=== PATIENT | male | born 1970 | race Caucasian/White ===

== ENCOUNTER → 2020-04-15 | Outpatient (CLI) | payer BC | END | disposition home or self-care (01) | LOC: LABWHC1 12:56 | PROVIDERS: ATTEND Physician Assistant | DX: R68.83 Chills (without fever) (principal) | CPT/HCPCS: 87502; U0003; C9803 ==

== ENCOUNTER 2022-05-05 16:55 | Emergency (ER) | payer BC ==
[2022-05-05 17:01] VITALS: RESP 18; TEMP 97.5
--- NOTE | 2022-05-05 17:20 | ED ---
Chest Pain HPI - General Chief Complaint: Chest Pain Stated Complaint: chest pain Time Seen by Provider: 05/05/22 17:03 Source: patient, RN notes reviewed Mode of arrival: ambulatory Limitations: no limitations - History of Present Illness Initial Comments: This is a 51-year-old male who presents to the emergency department for chest pain. States that he has had left-sided chest pain for the last 5 days. He describes the pain as a tightness with radiation into the back and left shoulder. He has minor associated shortness of breath, but is more so concerned about the tightness. The pain is worse with exertion. Denies any personal history of heart problems and he has never had chest pain before. He does have hypertension and hyperlipidemia. His father had cardiac problems, however he was in his 60s when this started. He was evaluated at his primary care provider's office, and because the pain was not reproducible, he was instructed to come to the emergency department for further evaluation. Denies any fevers, chills, sore throat, cough, palpitations, abdominal pain, nausea, vomiting, diarrhea, back pain, or headaches. MD Complaint: chest pain Onset/Timin -: days(s) Pain Location: left chest - Related Data Home Medications Medication Instructions Recorded Confirmed lisinopriL [Zestril] 10 mg PO DAILY 01/19/15 03/19/15 Allergies Allergy/AdvReac Type Severity Reaction Status Date / Time No Known Allergies Allergy Verified 03/17/15 08:44 Review of Systems ROS Statement: Those systems with pertinent positive or pertinent negative responses have been documented in the HPI. ROS Other: All systems not noted in ROS Statement are negative. Past Medical History Past Medical History: Hypertension, Prostate Disorder Additional Past Medical History / Comment(s): DIVERTICULOSIS 01/19/15: BPH, shingelles April 2014. History of Any Multi-Drug Resistant Organisms: None Reported Past Surgical History: Ear Surgery, Orthopedic Surgery, Prostate Surgery Additional Past Surgical History / Comment(s): Prostate biopsies-benign, R knee arthroscopy, vasectomy, L arm and L side of head skin grafting post accident. Past Anesthesia/Blood Transfusion Reactions: No Reported Reaction Additional Past Anesthesia/Blood Transfusion Reaction / Comment(s): Pt has never recieved blood. Past Psychological History: No Psychological Hx Reported Smoking Status: Never smoker Past Alcohol Use History: Occasional Past Drug Use History: None Reported - Past Family History Father Family Medical History: Cancer, Coronary Artery Disease (CAD), Hypertension Additional Family Medical History / Comment(s): Father is living. He has had melanoma, coronary stent General Exam Limitations: no limitations General appearance: alert, in no apparent distress Head exam: Present: atraumatic, normocephalic, normal inspection Respiratory exam: Present: normal lung sounds bilaterally. Absent: respiratory distress, wheezes, rales, rhonchi, stridor, chest wall tenderness Cardiovascular Exam: Present: regular rate, normal rhythm, normal heart sounds. Absent: systolic murmur, diastolic murmur, rubs, gallop, clicks Neurological exam: Present: alert, oriented X3, CN II-XII intact Psychiatric exam: Present: normal affect, normal mood Skin exam: Present: warm, dry, intact, normal color. Absent: rash Course Vital Signs 05/05/22 05/05/22 16:59 19:43 Temperature 97.5 F L Pulse Rate 68 59 L Respiratory 18 18 Rate Blood Pressure 144/89 134/82 O2 Sat by Pulse 98 97 Oximetry Chest Pain MDM - MDM This is a 51-year-old male who presents to the emergency department with chest pain. Was pt. sent in by a medical professional or institution? @ -His PCP Did you speak to anyone other than the patient for history? @ -His Did you review nursing and triage notes? @ -Yes, and I agree, it is accurate with regards to the patient's symptoms. Were old charts reviewed? @ -No Differential Diagnosis? @ -Differential Chest Pain: Stable Angina, Unstable Angina, STEMI, NSTEMI Aortic Dissection, Pneumothorax, Musculoskeletal, Esophageal Spasm GERD, Cholecystitis, Pancreatitis, Zoster, this is not meant to be an all-inclusive list. EKG interpreted by me (3pts min.)? @ -Sinus rhythm. Ventricular rate 64 beats per minute, TN interval 182 ms, QRS duration 102 ms, QTC 368 ms. X-rays interpreted by me (1pt min.)? @ -Chest x-ray obtained, my interpretation identifies no localized consolidations or infiltrates. What testing was considered but not performed? (CT, X-rays, U/S, labs)? Why? @ -None What meds were considered but not given? Why? @ -None Did you discuss the management of the patient with other professionals? @ -No Did you reconcile home meds? @ -No Was smoking cessation discussed for >3mins.? @ -No Was critical care preformed (if so, how long)? @ -No Were there social determinants of health that impacted care today? How? (Homelessness, low income, unemployed, alcoholism, drug addiction, transportation, low edu. Level, literacy, decrease access to med. care, intermediate, rehab)? @ -No Was there de-escalation of care discussed even if they declined? (Discuss DNR or withdrawal of care, Hospice)? @ -No What co-morbidities impacted this encounter? (DM, HTN, Smoking, COPD, CAD, Cancer, CVA, Hep., AIDS, mental health diagnosis, sleep apnea, morbid obesity)? @ -HTN, HLD Was patient admitted / discharged? @ -Discharged. Lab work obtained and found to be nonactionable including a negative troponin and d-dimer. Chest x-ray obtained revealing no acute findings. At the time of initial examination, the patient did not have any significant active chest pain. Discussed that with the lack of pain, we are not going to try nitroglycerin. Advised the patient that with his comorbidities of hypertension and hyperlipidemia as well as the description of his pain, I do strongly recommend admission for further evaluation by cardiology and serial troponins. Patient expresses understanding but wishes to decline admission at this time. States that he will follow up with cardiology on an outpatient basis. I then suggested serial troponins in the emergency department, however the patient again declines. He does express understanding when discussing that one troponin and otherwise negative lab work does not rule out an acute cardiac process and if he were to go home he could still experience an DE which can ultimately lead to . He was given very strict return parameters, in that if he develops increasing chest pain or shortness of breath, he should return immediately. Information for cardiology follow-up was provided, he is instructed to contact them Sunday morning for a follow-up appointment. Undiagnosed new problem with uncertain prognosis? @ -Chest pain Drug Therapy requiring intensive monitoring for toxicity (Heparin, Nitro, Insulin, Cardizem)? @ -None Were any procedures done? @ -None Diagnosis/symptom? @ -Chest pain Acute, or Chronic, or Acute on Chronic? @ -Acute Uncomplicated (without systemic symptoms) or Complicated (systemic symptoms)? @ -Uncomplicated Side effects of treatment? @ -None Exacerbation, Progression, or Severe Exacerbation] @ -Not applicable Poses a threat to life or bodily function? @ -Yes, depending on the cause of the chest pain. Return precautions reviewed in depth, the patient is instructed to return to the emergency department with any new, worsening, or concerning symptoms. Patient v erbalized understanding. This case was discussed in detail with the attending ED physician, Dr. Ruelas. Presentation, findings, and treatment plan discussed in detail as well. Disposition Clinical Impression: Chest pain Disposition: HOME SELF-CARE Instructions (If sedation given, give patient instructions): Chest Pain (ED) Additional Instructions: Return to the emergency department with any new, worsening, or concerning symptoms. Follow up with your primary care provider in 1-2 days and contact the pharmacy billing adjudicator on Sunday for a follow-up appointment to reevaluate symptoms and discuss any additional testing. Is patient prescribed a controlled substance at d/c from ED?: No Referrals: Brandt Muñoz DO [Primary Care Provider] - 1-2 days Cesar Mckenzie MD [STAFF PHYSICIAN] - 1-2 days
[2022-05-05 17:34] LABS: Appearance,Urine Clear (Clear); Bilirubin,Urine Negative (Negative); Blood,Urine Negative (Negative); Color,Urine Light Yellow; Glucose,Urine (UA) Negative (Negative); Ketones,Urine Negative (Negative); Leukocyte Esterase,Urine Negative (Negative); Nitrite,Urine Negative (Negative); Protein,Urine Negative (Negative); Specific Gravity,Urine 1.023 (1.001-1.035); Urobilinogen,Urine <2.0 mg/dL (<2.0)
--- NOTE | 2022-05-05 17:36 | XR ---
EXAMINATION TYPE: XR chest 2V DATE OF EXAM: 05/05/2022 5:32 PM COMPARISON: None TECHNIQUE: XR chest 2V Frontal and lateral views of the chest. CLINICAL INDICATION:Male, 51 years old with history of Chest Pain; FINDINGS: Lungs/Pleura: There is no evidence of pleural effusion, focal consolidation, or pneumothorax. Pulmonary vascularity: Unremarkable. Heart/mediastinum: Cardiomediastinal silhouette is unremarkable. Musculoskeletal: No acute osseous pathology. IMPRESSION: No acute cardiopulmonary disease/process.
[2022-05-05 17:46] LABS: ALT 57 U/L (4-49); AST 34 U/L (17-59); African American GFR (CKD) >90 (>60 ml/min/1.73 sqM); Albumin 4.6 g/dL (3.5-5.0); Alkaline Phosphatase 75 U/L (38-126); Anion Gap 7 mmol/L; Blood Urea Nitrogen 23 mg/dL (9-20); Calcium 9.2 mg/dL (8.4-10.2); Carbon Dioxide 24 mmol/L (22-30); Chloride 106 mmol/L (98-107); Glucose 91 mg/dL (74-99); INR 0.9 (<1.2); Magnesium 2.1 mg/dL (1.6-2.3); Non-African American GFR(CKD) >90 (>60 ml/min/1.73 sqM); Partial Thromboplastin Time 24.5 sec (22.0-30.0); Potassium 4.1 mmol/L (3.5-5.1); Prothrombin Time 9.9 sec (9.0-12.0); Sodium 137 mmol/L (137-145); Total Protein 7.7 g/dL (6.3-8.2)
[2022-05-05 18:01] LABS: Basophils # (A) 0.1 k/uL (0-0.2); Basophils % (A) 1 %; Eosinophils # (A) 0.3 k/uL (0-0.7); Eosinophils % (A) 5 %; HCT 41.9 % (39.0-53.0); HGB 14.8 gm/dL (13.0-17.5); Lymphocytes # (A) 1.6 k/uL (1.0-4.8); Lymphocytes % (A) 25 %; MCHC 35.2 g/dL (31.0-37.0); MCV 87.9 fL (80.0-100.0); Mean Platelet Volume 7.5; Monocytes # (A) 0.5 k/uL (0-1.0); Monocytes % (A) 7 %; Neutrophils # (A) 3.9 k/uL (1.3-7.7); Neutrophils % (A) 59 %; Platelet Count 231 k/uL (150-450); RBC 4.76 m/uL (4.30-5.90); RDW 12.8 % (11.5-15.5); WBC 6.7 k/uL (3.8-10.6)
[2022-05-05 19:44] VITALS: BP 134/82; PULSE 59
== END 2022-05-05 19:44 | disposition home or self-care (01) ==
LOC: EC 16:55
DX: R07.89 Other chest pain (principal); I10 Essential (primary) hypertension; E78.5 Hyperlipidemia, unspecified
CPT/HCPCS: 36415; 71046; 80053; 81003; 83735; 84484; 85025; 85379; 85610; 85730; 93005; 99285

== ENCOUNTER → 2022-06-26 | Outpatient (CLI) | payer BC ==
--- NOTE | 2022-06-26 12:37 | CA ---
Stress Echo Report Pietro Butt Age: 51 Gender: M : 1970 Exam Date: 06/26/2022 09:22 Exam Location: [facility] Ht (in): 75 Wt (lb): 235 Ordering Physician: Brandt Muñoz DO Referring Physician: ,, Bevel Face Stoner And Polisher: Marley Braun RDCS Technologist Procedure CPT: Indication: R94.31 ABNORMAL EKG ICD-9 Codes: Rhythm: Patient History: Hyperlipidemia, Hypertension Cardiac Medications: Medications in past 24 hours: Contrast: Stress Results Protocol: Wallace Total dose(mL): Exercise Duration (min:sec): 10:[address] Depression (mm): 0 Angina Score: 0 Mariee Score: 10 METS: 11.7 Resting HR: 65 Resting BP: 97 / 50 Peak HR: 159 Peak BP: 207 / 67 Max Predicted HR: 169 94 % Max Predicted HR Target HR: 144 Double Product: 52821 Stress Summary: The patient's target heart rate was achieved BP Response: Normal Reason for Termination: Reached target heart rate or work-load Cardiac Symptoms: Test terminated after reaching target heart rate (85% max predicted) ECG Analysis Resting ECG: Normal sinus rhythm, normal ECG Stress ECG: No abnormal ST/T wave changes with exercise Arrhythmia: Occasional PVCs Echo Analysis Resting Echo: Normal resting echocardiogram. Peak Echo Analysis: The global left ventricular systolic function improved with stress. MEASUREMENTS (Male/Female) Normal Values CONCLUSIONS No ECG evidence of ischemia with exercise. Normal treadmill stress echocardiogram. Patient falls into low-risk group (DTS >= +5). This associates the patient with an annual CV mortality <= 0.5%. Dr. Tatianna Singh MD (Electronically Signed) Final Date: 26 June 2022 12:36
== END | disposition home or self-care (01) ==
LOC: RADNMMAIN 08:59
PROVIDERS: ATTEND Family Medicine
DX: R94.31 Abnormal electrocardiogram [ECG] [EKG] (principal)
CPT/HCPCS: 93351